=== PATIENT | female | born 1940 | race Caucasian/White ===

== ENCOUNTER → 2020-03-15 | Outpatient (CLI) | payer MEDICARE, OTHER ==
[~2020-03-15] MED LIST: ALBU2.5V8 IH; ALPR0.25 PO; ATOR40TA PO; CAND1TAB PO; FENO145T32 PO; FLUT16SP21 NS; METF750T39 PO; TRAZ-120 PO; VENL150C PO; VITA400C37 PO
== END | disposition home or self-care (01) ==
LOC: LAB 11:04
PROVIDERS: ATTEND Registered Nurse
DX: Z03.818 Encounter for observation for suspected exposure to other biological agents ruled out (principal)
CPT/HCPCS: 87635

== ENCOUNTER → 2020-06-17 | Outpatient (CLI) | payer MEDICARE, OTHER ==
[~2020-06-17] MED LIST changes: +ASPI325T8 PO; +CILO100T PO
== END | disposition home or self-care (01) ==
LOC: LAB 13:35
PROVIDERS: ATTEND Nurse Anesthetist, Certified Registered
DX: Z01.818 Encounter for other preprocedural examination (principal); Z11.59 Encounter for screening for other viral diseases; Z12.11 Encounter for screening for malignant neoplasm of colon
CPT/HCPCS: U0003-CS

== ENCOUNTER → 2020-06-20 | Day surgery (SDC) | payer MEDICARE, OTHER ==
[~2020-06-20] MED LIST changes: +IPRATRPIUM/ALBUTEROL 0.5/2.5MG 3 ML NEBU. NEB PRN; +LIDOCAINE 2% PF 5 ML VIAL. ONE; +MIDAZOLAM HCL PF 2 MG/2 ML VIAL. IV ONE; +PHENYLEPHRINE 10 MG/ML VIAL. IV ONE; +PROPOFOL 10,000 MCG/ML (20ML) VIAL IV ONE
[2020-06-20] MEDS: IV RINGERS SOLUTION,LACTATED 1,000 ML IV SCH ×3 (09:35→11:29)
[2020-06-20 11:43] VITALS: BP 94/60
== END | disposition home or self-care (01) ==
LOC: SURG 08:57
PROVIDERS: ATTEND Internal Medicine Gastroenterology
DX: R19.5 Other fecal abnormalities (principal); D12.3 Benign neoplasm of transverse colon; K62.1 Rectal polyp; K64.4 Residual hemorrhoidal skin tags; K57.30 Diverticulosis of large intestine without perforation or abscess without bleeding; K64.8 Other hemorrhoids; I10 Essential (primary) hypertension; I48.91 Unspecified atrial fibrillation; I49.9 Cardiac arrhythmia, unspecified; F17.210 Nicotine dependence, cigarettes, uncomplicated; J44.9 Chronic obstructive pulmonary disease, unspecified; F32.9 Major depressive disorder, single episode, unspecified; E11.9 Type 2 diabetes mellitus without complications; Z79.82 Long term (current) use of aspirin; Z86.010 Personal history of colon polyps; Z98.890 Other specified postprocedural states; Z88.0 Allergy status to penicillin; Z79.899 Other long term (current) drug therapy; Z79.84 Long term (current) use of oral hypoglycemic drugs
CPT/HCPCS: 45380; 88305; J2001; J2704; J7120